=== PATIENT | female | born 1985 | race Caucasian/White ===

== ENCOUNTER → 2016-08-17 | Outpatient (CLI) | payer MEDICARE, OTHER ==
[~2016-08-17] MED LIST: DULCOLAX5 MG PO; LIORESAL TAB 1010 MG PO; LYRICA150 MG PO; PHENERGAN 12.12.5 M1 PO; PROZAC40 MG PO; TOPAMAX100 MG PO; TYLENOL W/CODEIN1 E1 PO; XANAX0.5 MG PO; ZANTAC150 MG PO
== END ==
LOC: KOH-I 08:00
DX: G35 Multiple sclerosis (principal); R93.0 Abnormal findings on diagnostic imaging of skull and head, not elsewhere classified; M50.322 Other cervical disc degeneration at C5-C6 level; M47.812 Spondylosis without myelopathy or radiculopathy, cervical region
CPT/HCPCS: 70553; 72156; A9577

== ENCOUNTER → 2016-08-20 | Outpatient (CLI) | payer MEDICARE, OTHER | LOC: OPSV 16:00 | DX: G35 Multiple sclerosis (principal) | CPT/HCPCS: 96365; J2930; J7030 ==

== ENCOUNTER → 2016-08-21 | Outpatient (CLI) | payer MEDICARE, OTHER ==
[~2016-08-21] VITALS: Ht 180.3 cm; Wt 127.0 kg
== END ==
LOC: OPSV 08:40
DX: G35 Multiple sclerosis (principal)
CPT/HCPCS: 96365; J2930; J7030

== ENCOUNTER → 2016-08-22 | Outpatient (CLI) | payer MEDICARE, OTHER ==
[~2016-08-22] VITALS: Ht 180.3 cm; Wt 127.0 kg
== END ==
LOC: OPSV 07:00
DX: G35 Multiple sclerosis (principal)
CPT/HCPCS: 96365; J2930; J7030

== ENCOUNTER → 2016-09-26 | Outpatient (CLI) | payer MEDICARE, OTHER | LOC: OPSV 09-25 15:30 | DX: G35 Multiple sclerosis (principal) | CPT/HCPCS: 96365; J2930; J7070 ==

== ENCOUNTER → 2016-09-27 | Outpatient (CLI) | payer MEDICARE, OTHER | LOC: OPSV 08:00 | DX: G35 Multiple sclerosis (principal) | CPT/HCPCS: 96365; J2930; J7070 ==

== ENCOUNTER → 2016-09-28 | Outpatient (CLI) | payer MEDICARE, OTHER ==
[~2016-09-28] VITALS: Ht 180.3 cm; Wt 127.0 kg
[2016-09-28 09:18] LABS: RED BLOOD COUNT 4.7 M/UL (4.00-5.10)
[2016-09-28 09:25] LABS: BUN/CREATININE RATIO 32 (0-10)
[2016-09-28 10:25] LABS: WHITE BLOOD COUNT 31.2 K/UL (4.5-11.0)
== END ==
LOC: OPSV 07:04
PROVIDERS: Nurse Practitioner
DX: G35 Multiple sclerosis (principal); R53.83 Other fatigue; Z79.899 Other long term (current) drug therapy
CPT/HCPCS: 36415; 80053; 85025; 96365; J2930